=== PATIENT | male | born 1985 | race Caucasian/White ===

== ENCOUNTER 2020-09-18 09:47 | Emergency (ER) | payer BC ==
[2020-09-18] MEDS ORDERED: Sodium Chloride 0.9% 2.5 ML Syringe FLUSH PRN (10:00)
[2020-09-18] MEDS: Sodium Chloride 0.9% 10 ML Syringe FLUSH PRN ×2 (10:11→10:12)
--- NOTE | 2020-09-18 10:11 | EDM.PDOC ---
ED HPI GENERAL MEDICAL PROBLEM - General Chief Complaint: Chest Pain Stated Complaint: CHEST PAIN Time Seen by Provider: 09/18/20 09:56 Source of Information: Reports: Patient History Limitations: Reports: No Limitations - History of Present Illness INITIAL COMMENTS - FREE TEXT/NARRATIVE: 34-year-old male with history of hypertension was sent here from respiratory clinic for chest discomfort. He woke up yesterday morning with midsternal nonradiating chest pressure rated 4/10 at that time, currently rated 2/10. He checked his blood pressure today and it was 150/100. Associated with sore throat, dry cough for 4 days. He also notes dull, gradual onset frontal headache rated 3/10 for 4 days. He denies shortness of breath, sweats, nausea, palpitation, fever, chills, diarrhea, anosmia, ageusia. He was prescribed Z-Marvel and promethazine with codeine from the respiratory clinic. ROS: A 10-point review of systems, other than pertinent positives and negatives as stated per HPI, is otherwise negative Past medical history: No additional pertinent history Past Surgical history: No additional pertinent history Social history: No additional pertinent history Family history: No additional pertinent history PHYSICAL EXAM General: AOx4, GCS = 15, No distress HEENT: dry mucous membrane Neck: supple, no meningismus, no Kernig or Brudzinski Cardiac: S1S2 RRR Respiratory: CTAB, no crackles or rales, no wheezing Abdomen: Soft, nontender, no rebound or guarding, nondistended, no pulsatile mass. Back: nontender Musculoskeletal: NVI distally, no deformity Neuro: No focal deficits, CN 2 - 12 WNL. chest pain Pain Score (Numeric/FACES): 2 headache Pain Score (Numeric/FACES): 7 - Related Data Allergies Allergy/AdvReac Type Severity Reaction Status Date / Time No Known Allergies Allergy Verified 09/18/20 10:03 Home Meds: Home Meds Meclizine [Antivert] 25 mg PO TID PRN #15 tab 09/18/20 [Rx] ED ROS GENERAL - Review of Systems Review Of Systems: See Below (see dictation) ED EXAM, GENERAL - Physical Exam Exam: See Below (see dictation) #1 Interpretation EKG Interpretation Comments: Heart rate = 64 bpm, normal sinus rhythm, normal QRS interval, no STEMI. EKG and rhythm strip interpreted by me at 0952 Course - Vital Signs Last Recorded V/S: Last Vital Signs Temp 97.2 F 09/18/20 13:58 Pulse 58 L 09/18/20 13:58 Resp 16 09/18/20 13:58 BP 126/76 09/18/20 13:58 Pulse Ox 100 09/18/20 13:58 - Orders/Labs/Meds Orders: Active Orders 24 hr Category Date Time Status Cardiac Monitoring [RC] . DIRECTED Care 09/18/20 10:00 Active EKG Documentation Completion [RC] STAT Care 09/18/20 09:59 Active Pulse Oximetry [RC] ASDIRECTED Care 09/18/20 10:00 Active Sodium Chloride 0.9% [Saline Flush] Med 09/18/20 10:00 Active 10 ml FLUSH ASDIRECTED PRN Sodium Chloride 0.9% [Saline Flush] Med 09/18/20 10:00 Active 2.5 ml FLUSH ASDIRECTED PRN Saline Lock Insert [OM.PC] Stat Oth 09/18/20 10:00 Ordered Medication Orders Sodium Chloride (Saline Flush) 10 ml FLUSH ASDIRECTED PRN PRN Reason: Keep Vein Open Last Admin: 09/18/20 10:12 Dose: 10 ml Documented by: Admin: 09/18/20 10:11 Dose: 10 ml Documented by: BOBBY Sodium Chloride (Saline Flush) 2.5 ml FLUSH ASDIRECTED PRN PRN Reason: Keep Vein Open Last Admin: 09/18/20 10:13 Dose: 2.5 ml Documented by: BOBBY Labs: Laboratory Tests 09/18/20 09/18/20 09/18/20 Range/Units 10:00 10:00 10:00 WBC 5.98 (4.0-11.0) K/uL RBC 5.25 (4.50-5.90) M/uL Hgb 15.8 (13.0-17.0) g/dL Hct 47.0 (38.0-50.0) % MCV 89.5 (80.0-98.0) fL MCH 30.1 (27.0-32.0) pg MCHC 33.6 (31.0-37.0) g/dL RDW Std Deviation 40.2 (28.0-62.0) fl RDW Coeff of Feroz 12 (11.0-15.0) % Plt Count 147 L (150-400) K/uL MPV 11.30 (7.40-12.00) fL Neut % (Auto) 60.0 (48.0-80.0) % Lymph % (Auto) 33.8 (16.0-40.0) % Collier % (Auto) 5.0 (0.0-15.0) % Eos % (Auto) 1.2 (0.0-7.0) % Baso % (Auto) 0.0 (0.0-1.5) % Neut # (Auto) 3.6 (1.4-5.7) K/uL Lymph # (Auto) 2.0 (0.6-2.4) K/uL Collier # (Auto) 0.3 (0.0-0.8) K/uL Eos # (Auto) 0.1 (0.0-0.7) K/uL Baso # (Auto) 0.0 (0.0-0.1) K/uL Nucleated RBC % 0.0 /100WBC Nucleated RBCs # 0 K/uL INR 1.02 Sodium 139 (136-148) mmol/L Potassium 3.8 (3.5-5.1) mmol/L Chloride 102 (98-107) mmol/L Carbon Dioxide 27.4 (21.0-32.0) mmol/L BUN 19 H (7.0-18.0) mg/dL Creatinine 1.1 (0.8-1.3) mg/dL Est Cr Clr Drug Dosing 92.41 mL/min Estimated GFR (MDRD) > 60.0 ml/min Glucose 112 H (74-106) mg/dL Calcium 9.1 (8.5-10.1) mg/dL Total Bilirubin 1.3 H (0.2-1.0) mg/dL AST 62 H (15-37) IU/L ALT 88 H (14-63) IU/L Alkaline Phosphatase 85 (46-116) U/L Troponin I < 0.050 (0.000-0.056) ng/mL Total Protein 7.7 (6.4-8.2) g/dL Albumin 4.2 (3.4-5.0) g/dL Globulin 3.5 (2.6-4.0) g/dL Albumin/Globulin Ratio 1.2 (0.9-1.6) SARS-CoV-2 RNA ([place]) (NEGATIVE) 09/18/20 09/18/20 Range/Units 11:04 12:04 WBC (4.0-11.0) K/uL RBC (4.50-5.90) M/uL Hgb (13.0-17.0) g/dL Hct (38.0-50.0) % MCV (80.0-98.0) fL MCH (27.0-32.0) pg MCHC (31.0-37.0) g/dL RDW Std Deviation (28.0-62.0) fl RDW Coeff of Feroz (11.0-15.0) % Plt Count (150-400) K/uL MPV (7.40-12.00) fL Neut % (Auto) (48.0-80.0) % Lymph % (Auto) (16.0-40.0) % Collier % (Auto) (0.0-15.0) % Eos % (Auto) (0.0-7.0) % Baso % (Auto) (0.0-1.5) % Neut # (Auto) (1.4-5.7) K/uL Lymph # (Auto) (0.6-2.4) K/uL Collier # (Auto) (0.0-0.8) K/uL Eos # (Auto) (0.0-0.7) K/uL Baso # (Auto) (0.0-0.1) K/uL Nucleated RBC % /100WBC Nucleated RBCs # K/uL INR Sodium (136-148) mmol/L Potassium (3.5-5.1) mmol/L Chloride (98-107) mmol/L Carbon Dioxide (21.0-32.0) mmol/L BUN (7.0-18.0) mg/dL Creatinine (0.8-1.3) mg/dL Est Cr Clr Drug Dosing mL/min Estimated GFR (MDRD) ml/min Glucose (74-106) mg/dL Calcium (8.5-10.1) mg/dL Total Bilirubin (0.2-1.0) mg/dL AST (15-37) IU/L ALT (14-63) IU/L Alkaline Phosphatase (46-116) U/L Troponin I < 0.050 (0.000-0.056) ng/mL Total Protein (6.4-8.2) g/dL Albumin (3.4-5.0) g/dL Globulin (2.6-4.0) g/dL Albumin/Globulin Ratio (0.9-1.6) SARS-CoV-2 RNA ([place]) NEGATIVE (NEGATIVE) Meds: Medications Generic Name Dose Route Start Last Admin Trade Name Sylwia PRN Reason Stop Dose Admin Sodium Chloride 10 ml 09/18/20 10:00 09/18/20 10:12 Saline Flush FLUSH 10 ml ASDIRECTED PRN Administration Keep Vein Open Sodium Chloride 2.5 ml 09/18/20 10:00 09/18/20 10:13 Saline Flush FLUSH 2.5 ml ASDIRECTED PRN Administration Keep Vein Open Discontinued Medications Generic Name Dose Route Start Last Admin Trade Name Sylwia PRN Reason Stop Dose Admin Al Hydroxide/Mg Hydroxide 15 0 ml 09/18/20 11:33 09/18/20 11:52 ml/ Lidocaine HCl 5 ml PO 09/18/20 11:34 20 each ONETIME ONE Administration Diphenhydramine HCl 50 mg 09/18/20 12:40 09/18/20 13:01 Benadryl IVPUSH 09/18/20 12:41 50 mg ONETIME ONE Administration Pantoprazole Sodium 40 mg/ 10 mls @ 300 mls/hr 09/18/20 11:33 09/18/20 11:53 Sodium Chloride IV 09/18/20 11:34 300 mls/hr NOW ONE Administration Sodium Chloride 1,000 mls @ 999 mls/hr 09/18/20 11:54 09/18/20 11:55 Normal Saline IV 09/18/20 12:54 999 mls/hr .Bolus ONE Administration Ketorolac Tromethamine 30 mg 09/18/20 12:40 09/18/20 13:01 Toradol IVPUSH 09/18/20 12:41 30 mg ONETIME ONE Administration Meclizine HCl 25 mg 09/18/20 13:19 09/18/20 13:24 Antivert PO 09/18/20 13:20 25 mg ONETIME ONE Administration Metoclopramide HCl 10 mg 09/18/20 12:40 09/18/20 13:01 Reglan IVPUSH 09/18/20 12:41 10 mg ONETIME ONE Administration - Re-Assessments/Exams Free Text/Narrative Re-Assessment/Exam: 09/18/20 12:41 Pain is completely resolved after GI cocktail and Protonix. Headache still rated 3/10, will order IV Reglan, Benadryl, Toradol. 09/18/20 13:19 Patient now complains of room spinning sensation, will give meclizine p.o. Repeat neurologic exam demonstrates fatigable horizontal nystagmus with no focal deficits. 09/18/20 14:15 After meclizine in the ER, his dizziness improved and is currently stable for discharge. I performed a repeat exam and did not appreciate new abnormal findings. Patient exhibits normal vital signs and has a normal gait on road test. I advised the patient to return to the ER for reevaluation if symptoms worsened, including fever, worsening pain, or any other worrisome symptoms. I instructed the patient to follow up with their PCP within 2-3 days. MEDICAL DECISION MAKING: I reviewed the patients past medical records, lab and radiographic findings. I discussed the case with the patient. My differential diagnosis included: vertigo, HTN, ACS, pneumonia, PE, pneumothorax, chest wall pain, pulmonary edema/CHF, aortic dissection, pericarditis, intra-abdominal process. Given the EKG and clinical history, I do not suspect pericarditis. There is no evidence of pneumothorax or infiltrate on CXR. Aortic dissection was considered, however the presenting symptoms were uncharacteristic of aortic dissection. Chest X-ray shows no evidence of mediastinal widening and there are strong, equal and symmetric pulses. Given the current presentation, I do not suspect aortic dissection. The patients history, chest X-ray, and exam do not suggest pulmonary edema/congestive heart failure. Pulmonary embolism was considered but felt unlikely due to the compendium of presenting elements leading to a low pre-test probability followed by a negative PERC rule. All 8 of the rule out PERC criteria were present including: Age<50, HR <100, O2 sat > 94%, no recent trauma/surgery, no hemoptysis, no exogenous hormone use, no clinical signs suggestive of DVT, no hx DVT/PE. Given the above, there is a <2% risk of PE and I feel that no further diagnostic testing is needed. Intra- abdominal pathology felt unlikely given benign/non tender abdominal exam. Acute coronary syndrome was considered but there are negative serial biomarkers, no acute ischemic EKG changes, and the patient has a low HEART score. Based on this, I feel that there is low risk for short-term major adverse cardiac event. I have discussed this with the patient and reviewed options for inpatient and outpatient management. The patient verbalizes an excellent understanding of the above including presence of small risk of short-term major adverse cardiac event even in the setting of low HEART score, negative cardiac biomarker, and compendium of elements of this presentation. The patient wishes to pursue further workup on as an outpatient. Patient's symptoms today are consistent with peripheral vertigo. I do not suspect central etiology, stroke, SAH, meningitis, or any severe infection. Patient's dizziness resolved with ED treatment, and there were no other focal neurological findings or additional complaints. Pt well appearing, ambulatory on own in ED w/o difficulty. I instructed the patient to return immediately for severe, persistent dizziness, vomiting, fever, focal weakness, change in mental status, headache or other concerns. Pt voiced under-standing and questions answered. Departure - Departure Time of Disposition: 14:17 Disposition: Home, Self-Care 01 Condition: Good Clinical Impression: Dizziness, Chest pain - Discharge Information *PRESCRIPTION DRUG MONITORING PROGRAM REVIEWED*: Not Applicable *COPY OF PRESCRIPTION DRUG MONITORING REPORT IN PATIENT QUINCY: Not Applicable Prescriptions: Meclizine [Antivert] 25 mg PO TID PRN #15 tab PRN Reason: Dizziness Instructions: Nonspecific Chest Pain, Adult, [id number], Dizziness, [id number], How to Perform the Navarro Maneuver Referrals: PCP,None [Primary Care Provider] - 3 Days Forms: ED Department Discharge Additional Instructions: The need for follow-up, as well as the timing and circumstances, are variable depending upon the specifics of your emergency department visit. If you don't have a primary care physician on staff, we will provide you with a referral. We always advise you to contact your personal physician following an emergency department visit to inform them of the circumstance of the visit and for follow-up with them and/or the need for any referrals to a consulting specialist. The emergency department will also refer you to a specialist when appropriate. This referral assures that you have the opportunity for follow-up care with a specialist. All of these measure are taken in an effort to provide you with optimal care, which includes your follow-up. Under all circumstances we always encourage you to contact your private physician who remains a resource for coordinating your care. When calling for follow-up care, please make the office aware that this follow-up is from your recent emergency room visit. If for any reason you are refused follow-up, please contact the [facility] Emergency Department at and asked to speak to the emergency department charge nurse. If you do not have a primary care doctor, please follow up with the clinics below within 3-5 days. [facility] - [facility] [address] [place] [id number] [facility] [address] [place] [id number] Sepsis Event Note (ED) - Evaluation Sepsis Screening Result: No Definite Risk - Focused Exam Vital Signs: Vital Signs Temp Pulse Resp BP Pulse Ox 09/18/20 13:58 97.2 F 58 L 16 126/76 100 09/18/20 13:44 97.2 F 64 16 122/67 100 09/18/20 13:11 72 16 132/72 98 09/18/20 13:00 61 16 138/84 97 09/18/20 12:59 97.2 F 62 16 138/84 97 09/18/20 12:45 60 16 148/86 H 97 09/18/20 12:30 97.2 F 59 L 16 143/84 H 98 09/18/20 12:14 97.2 F 58 L 16 139/79 98 09/18/20 12:00 64 16 144/90 H 97 09/18/20 11:00 54 L 16 143/86 H 97 09/18/20 10:45 64 16 138/86 98 09/18/20 10:30 64 16 138/84 97 09/18/20 10:15 70 16 139/83 98 09/18/20 10:05 96.9 F 67 18 151/90 H 96 09/18/20 09:59 98.3 F 71 18 151/90 H 96 - My Orders Last 24 Hours: My Active Orders 09/18/20 09:59 EKG Documentation Completion [RC] STAT 09/18/20 10:00 Cardiac Monitoring [RC] . DIRECTED Pulse Oximetry [RC] ASDIRECTED Sodium Chloride 0.9% [Saline Flush] 10 ml FLUSH ASDIRECTED PRN Sodium Chloride 0.9% [Saline Flush] 2.5 ml FLUSH ASDIRECTED PRN Saline Lock Insert [OM.PC] Stat - Assessment/Plan Last 24 Hours: My Active Orders 09/18/20 09:59 EKG Documentation Completion [RC] STAT 09/18/20 10:00 Cardiac Monitoring [RC] . DIRECTED Pulse Oximetry [RC] ASDIRECTED Sodium Chloride 0.9% [Saline Flush] 10 ml FLUSH ASDIRECTED PRN Sodium Chloride 0.9% [Saline Flush] 2.5 ml FLUSH ASDIRECTED PRN Saline Lock Insert [OM.PC] Stat
[2020-09-18 10:39] LABS: BLOOD UREA NITROGEN,BUN 19 mg/dL (7.0-18.0); CARBON DIOXIDE,CO2 27.4 mmol/L (21.0-32.0); CHLORIDE,CL 102 mmol/L (98-107); GLUCOSE RANDOM 112 mg/dL (74-106); POTASSIUM,K 3.8 mmol/L (3.5-5.1); SODIUM,NA 139 mmol/L (136-148)
--- NOTE | 2020-09-18 10:57 | CR ---
INDICATION: Dyspnea COMPARISON: None TECHNIQUE: Single-view chest radiograph obtained portably FINDINGS: TUBES AND LINES: None. HEART AND MEDIASTINUM: The heart size is normal. The mediastinal contour appears normal for patient age. LUNGS AND PLEURAL SPACES: The lungs appear normal.The pleural spaces are unremarkable. OSSEOUS STRUCTURES: Age-appropriate appearance. No acute focal finding. IMPRESSION: No evidence of active pulmonary disease. Dictated by Vinod Fisher MD @ Sep 18 2020 10:55AM Signed by Dr. Vinod Fisher @ Sep 18 2020 10:56AM
[2020-09-18] MEDS ORDERED: Alum Hydrox/Mag Hydrox/Simeth 15 ML, Lidocaine 2% 5 ML PO ONE ×2 (11:33)
[2020-09-18] MEDS ORDERED: Pantoprazole 40 MG in Sodium Chloride 0.9% 10 ML IV ONE (11:33)
[2020-09-18] MEDS ORDERED: Sodium Chloride 0.9% 1,000 ML IV SCH (11:45)
[2020-09-18] MEDS ORDERED: Sodium Chloride 0.9% 1,000 ML IV ONE (11:54)
[2020-09-18] MEDS ORDERED: diphenhydrAMINE 50 MG/ML SDV IVPUSH ONE (12:40)
[2020-09-18] MEDS ORDERED: Metoclopramide 10 MG/2 ML SDV IVPUSH ONE (12:40)
[2020-09-18] MEDS ORDERED: Ketorolac 30 MG/ML SDV IVPUSH ONE (12:40)
[2020-09-18] MEDS ORDERED: Meclizine 25 MG Tab PO ONE (13:19)
== END 2020-09-18 14:30 | disposition home or self-care (01) ==
LOC: MW.ED 09:47
DX: R07.89 Other chest pain (principal); R42 Dizziness and giddiness; I10 Essential (primary) hypertension; Z20.828 Contact with and (suspected) exposure to other viral communicable diseases
CPT/HCPCS: 36415; 71045; 80053; 84484; 85025; 85610; 87635; 93005; 96365; 96375; 99285; A9270; C9113; J1200; J1885; J2765; J7030; 93010; 99283; U0002

== ENCOUNTER 2022-09-11 02:32 | Emergency (ER) | payer BC ==
[2022-09-11] MEDS ORDERED: Metoclopramide 10 MG/2 ML SDV IVPUSH ONE (02:53)
[2022-09-11] MEDS ORDERED: Ketorolac 30 MG/ML SDV IVPUSH ONE (02:53)
[2022-09-11] MEDS ORDERED: diphenhydrAMINE 50 MG/ML SDV IVPUSH ONE (02:53)
[2022-09-11 03:41] LABS: CARBON DIOXIDE,CO2 27.8 mmol/L (21.0-32.0); POTASSIUM,K 3.7 mmol/L (3.5-5.1)
[2022-09-11 04:24] LABS: CORONAVIRUS COVID-19 NAA POSITIVE (NEGATIVE); INFLUENZA A NAA NEGATIVE (NEGATIVE); INFLUENZA B NAA NEGATIVE (NEGATIVE)
== END 2022-09-11 04:58 | disposition home or self-care (01) ==
LOC: MW.ED 02:32
DX: U07.1 COVID-19 (principal); I10 Essential (primary) hypertension
CPT/HCPCS: 0240U; 36415; 70450; 71045; 80053; 85025; 96374; 96375; 99284; J1200; J1885; J2765

== ENCOUNTER 2022-12-02 11:45 | Emergency (ER) | payer BC ==
[2022-12-02 15:26] LABS: CARBON DIOXIDE,CO2 28.2 mmol/L (21.0-32.0); POTASSIUM,K 4.4 mmol/L (3.5-5.1)
== END 2022-12-02 16:47 | disposition home or self-care (01) ==
LOC: MW.ED 11:45
DX: I10 Essential (primary) hypertension (principal); Z79.899 Other long term (current) drug therapy
CPT/HCPCS: 36415; 71045; 71045-26; 80053; 81003; 85025; 93005; 99284